=== PATIENT | male | born 1975 | race Caucasian/White ===

== ENCOUNTER 2018-12-09 12:19 | Emergency (ER) | payer OTHER ==
[~2018-12-09] VITALS: Ht 177.8 cm; Wt 59.0 kg
[2018-12-09 12:27] VITALS: BP 132/78
--- NOTE | 2018-12-09 12:27 | NUR ---
Patient ambulated to bed 2. RN evaluating patient at bedside.
--- NOTE | 2018-12-09 12:32 | NUR ---
Dr. Oneal evaluating patient at bedside.
--- NOTE | 2018-12-09 12:43 | NUR ---
and i manipulated shoulder back in place. pt refused pain medications at this time. maintains +2 radial pulse <3 sec cap refill. sling placed
[2018-12-09 13:55] VITALS: BP 132/78
== END 2018-12-09 13:55 | disposition home or self-care (01) ==
LOC: MED 12:19
DX: S43.005A Unspecified dislocation of left shoulder joint, initial encounter (principal); S43.402A Unspecified sprain of left shoulder joint, initial encounter; V97.29XA Other parachutist accident, initial encounter; Y93.89 Activity, other specified; Y92.89 Other specified places as the place of occurrence of the external cause; Y99.8 Other external cause status
CPT/HCPCS: 23650; 73030; 99284